=== PATIENT | female | born 1965 | race Caucasian/White ===

== ENCOUNTER → 2017-06-21 | Outpatient (CLI) | payer BC ==
--- NOTE | 2017-06-24 10:21 | Diagnostic Imaging Report ---
INDICATION: Routine screening. COMPARISON: 06/25/2012 and 07/04/2011. TECHNIQUE: Screening digital mammography was performed bilaterally with a Computer Aided Detection (CAD) system. FINDINGS: Both breasts remain heterogeneously dense, limiting the sensitivity of mammography. There are numerous microcalcifications noted in both breasts; however, the calcifications appear to be very similar to the prior exam when allowing for slight differences in technique. No suspicious mass is identified. The axillae are unremarkable. IMPRESSION: No mammographic features suspicious for malignancy are identified. ACR BI-RADS Category 2: Benign findings. Result letter will be mailed to the patient. Note: At least 10% of breast cancer is not imaged by mammography. Dictated by: Dictated on workstation # [id number]
== END ==
LOC: RAD 14:50
PROVIDERS: ATTEND Obstetrics & Gynecology
DX: Z12.31 Encounter for screening mammogram for malignant neoplasm of breast (principal)
CPT/HCPCS: 77067

== ENCOUNTER 2018-08-20 05:54 | Outpatient (CLI) | payer BC ==
[~2018-08-20] VITALS: Ht 172.7 cm; Wt 62.6 kg
== END 2018-08-20 10:36 | disposition home or self-care (01) ==
LOC: PREOP 05:54
PROVIDERS: ATTEND Surgery
DX: Z01.818 Encounter for other preprocedural examination (principal)

== ENCOUNTER 2018-08-27 09:17 | Day surgery (SDC) | payer BC ==
[~2018-08-27] VITALS: Ht 172.7 cm; Wt 62.6 kg
[2018-08-27] MEDS ORDERED: NS IV 500 ML 500 ML ONE (09:18)
[2018-08-27] MEDS ORDERED: NS IV 500 ML 500 ML IV PRN (09:19)
[2018-08-27] MEDS ORDERED: MIDAZOLAM 2 MG/2 ML (VERSED) VIAL IVP ONE (09:30)
[2018-08-27] MEDS ORDERED: fentaNYL INJECTION 100 MCG/2 ML AMP IVP ONE (09:30)
[2018-08-27] MEDS ORDERED: LIDOCAINE JELLY 2% 6 ML SYRINGE MM PRN (09:30)
[2018-08-27 09:40] VITALS: BP 109/66
[2018-08-27] MEDS ORDERED: LIDOCAINE JELLY 2% 6 ML SYRINGE ONE (09:51)
[2018-08-27] MEDS ORDERED: fentaNYL INJECTION 100 MCG/2 ML AMP ONE ×2 (09:52→10:22)
[2018-08-27] MEDS ORDERED: MIDAZOLAM 2 MG/2 ML (VERSED) VIAL ONE ×4 (09:52)
--- NOTE | 2018-08-27 10:07 | Conscious Sedation/ASA ---
Conscious Sedation Pre-Proced Time 10:00 ASA Score 2 For ASA 3 and 4: Consider anesthesia and medical clearance. Also, for patients with a history of failed moderate sedation consider anesthesia. Airway Lungs Heart ASA score ASA 1: a normal healthy patient ASA 2: a patient with a mild systemic disease (mid diabetes, controlled hypertension, obesity ASA 3: a patient with a severe systemic disease that limits activity (angina, COPD, prior Myocardial infarction) ASA 4: a patient with an incapacitating disease that is a constant threat to life (CHF, renal failure) ASA 5: a moribund patient not expected to survive 24 hrs. (ruptured aneurysm) ASA 6: a declared brain- patient whose organs are being harvested. For emergent operations, add the letter E after the classification Mallampati Classification Grade 2 Sedation Plan Analgesia, Amnesia, Plan communicated to team members, Discussed options with patient/fam, Discussed risks with patient/fam The patient is an appropriate candidate to undergo the planned procedure, sedation, and anesthesia. The patient immediately re-assessed prior to indication. MALCOLM GARSIA MD Aug 27, 2018 10:07
--- NOTE | 2018-08-27 10:08 | Progress Note-Pre Operative ---
Pre-Operative Progress Note H&P Reviewed The H&P was reviewed, patient examined and no changes noted. Date Seen by Provider: Aug 27, 2018 Time Seen by Provider: 10:00 Date H&P Reviewed: Aug 27, 2018 Time H&P Reviewed: 10:00 Pre-Operative Diagnosis: screening colonoscopy MALCOLM GARSIA MD Aug 27, 2018 10:08
--- NOTE | 2018-08-27 10:10 | Discharge Inst-Surgical ---
D/C Lap Instructions-SUN Follow Up Activity as tolerated High Fiber Diet 25g or more per day Avoid Alcohol, Caffeine, Spicy [place] and Acid foods. Drink 64 fluid oz or more of fluids per day. Symptoms to Report: Fever over 101 degree F, Nausea/Vomiting If any problems/questions: Contact your physician or go to Emergency Room MALCOLM GARSIA MD Aug 27, 2018 10:10
[2018-08-27] MEDS ORDERED: ACETAMINOPHEN 325 MG TABLET PO PRN (10:15)
[2018-08-27] MEDS ORDERED: morphine INJ 10 MG/ML 1ML (SYR OR VIAL) IVP PRN ×2 (10:15)
[2018-08-27] MEDS ORDERED: ONDANSETRON 4 MG/2 ML (SDV) Z0FRAN IVP PRN (10:15)
[2018-08-27] MEDS ORDERED: HYDROcodone/APAP 5 MG/325 MG (LORTAB) TAB PO PRN (10:15)
--- OUTSIDE RECORDS SUMMARY | 2018-08-27 10:43 | XMS REPORT | Continuity of Care Document ---
Author Organization Unknown Address Unknown Allergies Active Description Code Type Severity Reaction Onset Reported/Identified Relationship to Patient Clinical Status Yes No Known Drug Allergies [id number] Drug Allergy Unknown N/A 08/20/2018 Medications There is no data. Problems Date Dx Coded Attending Type Code Diagnosis Diagnosed By 03/05/2014 Ot 789.01 03/05/2014 Ot 611.89 03/05/2014 Ot V67.9 03/05/2014 Ot 625.8 03/05/2014 Ot 789.04 03/05/2014 Ot V16.41 03/05/2014 Ot 620.2 03/05/2014 Ot 625.8 03/05/2014 LAURY GARCIA Ot 620.2 03/05/2014 SHELIA HERNDON MD Ot 620.2 03/05/2014 SHELIA HERNDON MD Ot V16.41 06/10/2017 Ot 625.8 FEM GENITAL SYMPTOMS NEC 06/10/2017 LAURY GARCIA Ot 620.2 OVARIAN CYST NEC/NOS 06/10/2017 SHELIA HERNDON MD Ot 620.2 OVARIAN CYST NEC/NOS 06/10/2017 SHELIA HERNDON MD Ot V16.41 FAM HX-MAL NEOP-OVARY 06/22/2017 Ot 625.8 FEM GENITAL SYMPTOMS NEC 06/22/2017 LAURY GARCIA Ot 620.2 OVARIAN CYST NEC/NOS 06/22/2017 SHELIA HERNDON MD Ot 620.2 OVARIAN CYST NEC/NOS 06/22/2017 SEHLIA HERNDON MD Ot V16.41 FAM HX-MAL NEOP-OVARY 06/24/2017 GUS JOE MD Ot Z12.31 ENCNTR SCREEN MAMMOGRAM FOR MALIGNANT NE 07/04/2017 GUS JOE MD Ot Z12.31 ENCNTR SCREEN MAMMOGRAM FOR MALIGNANT NE 08/20/2018 MALCOLM GARSIA MD Ot Z01.818 ENCOUNTER FOR OTHER PREPROCEDURAL EXAMIN Procedures There is no data. Results There is no data. Encounters ACCT No. Visit Date/Time Discharge Status Pt. Type Provider Facility Loc./Unit Complaint [id number] 08/20/2018 05:54:00 08/20/2018 10:36:00 DIS Outpatient MALCOLM GARSIA MD [facility] PREOP COLONOSCOPY [id number] 06/21/2017 14:50:00 06/21/2017 23:59:59 CLS Outpatient TATYANA GRIJALVA, GUS [facility] RAD SCREENING [id number] 10/30/2013 15:32:00 10/30/2013 23:59:59 CLS Outpatient SHELIA HERNDON MD [facility] RAD FAMILY HX OF OVARIAN CA [id number] 09/05/2012 15:33:00 09/05/2012 23:59:59 CLS Outpatient LAURY GARCIA [facility] RAD LT OVARIAN CYST [id number] 08/27/2018 09:30:00 PEN Preadmit MALCOLM GARSIA MD [facility] ENDO SCREENING [id number] 08/27/2018 07:45:00 PEN Preadmit OTHER, UNLISTED [facility] RAD SCREENING [id number] 07/09/2012 10:07:00 Document Registration [id number] 07/19/2011 10:01:00 Document Registration [id number] 06/13/2011 14:58:00 Document Registration [id number] 12/28/2009 07:46:00 Document Registration [id number] 09/15/2009 07:10:00 Document Registration
--- NOTE | 2018-08-27 10:45 | Progress Note-Post Operative ---
Post-Operative Progess Note Surgeon (s)/Dental Prosthetist (s) Surgeon MALCOLM GARSIA MD Dental Prosthetist: none Pre-Operative Diagnosis screening colonoscopy Post-Operative Diagnosis normal colon and rectum Procedure & Operative Findings Date of Procedure 08/27/18 Procedure Performed/Findings colonoscopy Anesthesia Type cs Estimated Blood Loss Estimated blood loss (mL): minimal Specimens/Packing Specimens Removed none MALCOLM GARSIA MD Aug 27, 2018 10:44
[2018-08-27 11:00] VITALS: BP 104/63
[2018-08-27 11:30] VITALS: BP 104/64
[2018-08-27 11:35] VITALS: BP 104/64
--- NOTE | 2018-08-27 15:06 | OPERATIVE REPORT ---
DATE OF SERVICE: 08/27/2018 ATTENDING PRIMARY PHYSICIAN: Dr. Graff. PREOPERATIVE DIAGNOSIS: Screening colonoscopy. POSTOPERATIVE DIAGNOSIS: Normal colon and rectum. PROCEDURE: Colonoscopy. SURGEON: Malcolm Garsia MD ANESTHESIA: Conscious sedation. ESTIMATED BLOOD LOSS: Minimal. FINDINGS: Normal colon and rectum. No polyps nor any neoplasms. DISPOSITION: The patient tolerated the procedure well. INDICATIONS: The patient is a 52-year-old female in need of a screening colonoscopy. She has not had a colonoscopy up to this point in her life. She states that she is otherwise doing well. Does not report any major issues with diarrhea, no constipation as well as no red blood per rectum nor any dark tarry stools. She also does not report any family history of colon cancer. DESCRIPTION OF PROCEDURE: The patient was brought to the endoscopy suite, laid in the left lateral decubitus position. After adequate IV pain and sedative medications and conscious sedation anesthesia, a digital rectal examination was performed. No significant hemorrhoids were identified. Normal sphincter tone was felt and there were no palpable masses. The endoscope was then intubated to the anus and rectum gently insufflated. The endoscope was then advanced through the valves of Correa in the rectum with no polyps or any neoplasms identified. The endoscope was then advanced to the sigmoid colon, where no diverticulosis was identified. The endoscope was then advanced through the remainder of the descending, transverse and ascending colon to the cecum. These segments were normal. There were no polyps or any neoplasms identified. The endoscope was then slowly withdrawn while taking a second look and suctioning of residual air with no additional findings. The patient tolerated the procedure well. We will recommend continue conservative management with a high fiber diet with at least 25 grams of fiber per day as well as significant amounts of water to promote soft stools on a daily basis. She does not need another colonoscopy for another 10 years. Job ID: [id number] DocumentID: [id number] Dictated Date: 08/27/2018 10:44:19 Mothers Helper Date: 08/27/2018 15:06:13 Dictated By: MALCOLM GARSIA MD
== END 2018-08-27 11:35 | disposition home or self-care (01) ==
LOC: ENDO 09:17
PROVIDERS: ATTEND Surgery
DX: Z12.11 Encounter for screening for malignant neoplasm of colon (principal); Z80.41 Family history of malignant neoplasm of ovary
CPT/HCPCS: 84703

== ENCOUNTER → 2018-08-27 | Outpatient (CLI) | payer BC ==
--- NOTE | 2018-08-27 12:42 | Diagnostic Imaging Report ---
INDICATION: Bilateral screening with 3-D tomosynthesis and cad. EXAMINATION: Digital mammogram. This study was compared to prior exams of 06/21/17 and 06/25/12. At this time there are no current complaints. The fibroglandular tissue in both breasts is dense. This does limit the sensitivity of this exam. As noted on the prior exam there are number of calcifications scattered throughout both breasts. However there is now a group of microcalcifications in the retroareolar region of the left breast which do seem more numerous than on the prior exam. I would recommend that a compression/magnification view of these microcalcifications be obtained in the CC and ML projection so that they can be better characterized. There is no primary or secondary sign of malignancy noted otherwise. IMPRESSION: Additional mammographic views of the left breast would be recommended for further study. ACR BI-RADS Category 0: Incomplete. (Needs additional imaging evaluation). Result letter will be mailed to the patient. Note: At least 10% of breast cancer is not imaged by mammography. Dictated by: Dictated on workstation # [id number]
== END ==
LOC: RAD 07:46
PROVIDERS: ATTEND Obstetrics & Gynecology
DX: Z12.31 Encounter for screening mammogram for malignant neoplasm of breast (principal)
CPT/HCPCS: 77067

== ENCOUNTER → 2018-09-10 | Outpatient (CLI) | payer BC ==
--- NOTE | 2018-09-10 14:21 | Diagnostic Imaging Report ---
INDICATION: Left breast calcifications. The patient presents for additional views. COMPARISON: Correlation is made with the recent screening study from 08/27/2018. TECHNIQUE: Unilateral left 2D and 3D diagnostic mammography was performed including magnification CC and ML views as well as a conventional 90 lateral view. FINDINGS: Calcifications in the retroareolar and slightly outer left breast do appear to be slightly more numerous when compared with the prior exam. The calcifications are primarily round and do not exhibit pleomorphism. No soft tissue mass is seen. IMPRESSION: Increasing cluster of microcalcifications in the retroareolar and slightly outer left breast. While these have a fairly benign shape, the increase in number is concerning and tissue sampling is recommended. These would be amenable to stereotactic biopsy. ACR BI-RADS Category 4: Suspicious abnormality. Result letter will be mailed to the patient. Note: At least 10% of breast cancer is not imaged by mammography. Dictated by: Dictated on workstation # [id number]
== END ==
LOC: RAD 13:11
PROVIDERS: ATTEND Obstetrics & Gynecology
DX: R92.0 Mammographic microcalcification found on diagnostic imaging of breast (principal)

== ENCOUNTER → 2018-09-26 | Outpatient (CLI) | payer BC ==
[~2018-09-26] VITALS: Ht 172.7 cm; Wt 62.6 kg
[~2018-09-26] MED LIST: LIDOCAINE 1% INJ 20 ML 20 ML VIAL INJ ONE; LIDOCAINE 1% INJ 20 ML 20 ML VIAL ONE
--- NOTE | 2018-09-26 16:07 | Diagnostic Imaging Report ---
INDICATION: Left breast calcifications. PROCEDURE: The patient presents for stereotactic biopsy. DESCRIPTION OF PROCEDURE: The patient brought to the stereotactic suite and placed in a chair in a sitting upright position. The left breast was positioned lateral medial. Stereotactic imaging was performed. Calcifications in the retroareolar left breast was stereotactically targeted. The lateral left breast was prepped and draped in the usual sterile fashion. A small amount of 1% lidocaine was utilized for local anesthesia. An 8 gauge needle was advanced from a lateral medial approach, placed per stereotactic coordinates. A total of 4 core biopsies were obtained utilizing a vacuum-assisted device. Specimen radiograph was viewed on a dedicated workstation. There are multiple calcifications within the specimens, in particular the specimen labeled numbers 2, 3 and 4. Marker clip was then deployed. Needle was removed and hemostasis was obtained. The patient tolerated the procedure well and was sent for postprocedure mammogram in satisfactory condition. Postprocedure mammogram demonstrates stereotactic clips in the retroareolar left breast. IMPRESSION: Successful stereotactic biopsy of left breast calcifications. Pathology results are currently pending. Dictated by: Dictated on workstation # [id number]
== END ==
LOC: RAD 08:29
DX: R92.1 Mammographic calcification found on diagnostic imaging of breast (principal); R92.8 Other abnormal and inconclusive findings on diagnostic imaging of breast
CPT/HCPCS: 19081; 88305

== ENCOUNTER → 2019-03-19 | Outpatient (CLI) | payer BC ==
--- NOTE | 2019-03-19 17:02 | Diagnostic Imaging Report ---
PROCEDURE: US Non-ob pelvis comp/trans. TECHNIQUE: Multiple realtime grayscale images were obtained of the pelvis in various projections endovaginally. Transabdominal imaging was also performed. INDICATION: Dysfunctional uterine bleeding. COMPARISON: 10/30/2013. FINDINGS: Transabdominal: The uterus and adnexa have a unremarkable transabdominal appearance. Transvaginal images were obtained for additional characterization. Transvaginal: The uterus is anteverted and measures 9.5 x 4.0 x 5.1 cm. A focal area of mixed echogenicity is seen in the right uterine fundus measuring 2.1 x 2.1 x 2.0 cm. The endometrial stripe measures 0.4 cm and has a normal appearance. The right ovary is well visualized measuring 2.6 x 1.3 x 1.7 cm and demonstrating normal color Doppler flow. The left ovary is well-visualized measuring 2.2 x 3.2 x 1.9 cm with normal color Doppler flow. Small cysts/follicles are seen in the ovaries bilaterally. No adnexal masses. No free fluid is seen in the pelvis. IMPRESSION: 1. Likely uterine fibroid in the right aspect of the fundus. The endometrial stripe is unremarkable. 2. Unremarkable sonographic appearance of the ovaries with small cysts/follicles bilaterally. No free fluid in the adnexa. Dictated by: Dictated on workstation # [id number]
== END ==
LOC: RAD 15:29
PROVIDERS: ATTEND Obstetrics & Gynecology
DX: N93.8 Other specified abnormal uterine and vaginal bleeding (principal)
CPT/HCPCS: 76830; 76856

== ENCOUNTER → 2019-03-27 | Outpatient (CLI) | payer BC ==
--- NOTE | 2019-03-27 17:13 | Diagnostic Imaging Report ---
INDICATION: Six-month follow-up of left breast calcifications. Patient is status post stereotactic biopsy with benign result. Correlation is made with prior mammograms from 09/26/2018, 08/27/2018, as well as 06/21/2017. Unilateral left 2-D and 3-D diagnostic mammography was performed. The current study was also evaluated with a Computer Aided Detection (CAD) system. 3-D tomosynthesis was also performed and reviewed. FINDINGS: Left breast remains heterogeneously dense, limiting the sensitivity of mammography. Post biopsy changes in retroareolar left breast are noted. There is a marker clip in place. The cluster of microcalcifications previously noted has been stereotactically removed. Additional benign calcifications throughout the left breast are noted. No discrete mass is detected. Left axilla is unremarkable. IMPRESSION: Stable post biopsy changes. No mammographic features suspicious for malignancy are identified. ACR BI-RADS Category 2: Benign findings. Result letter will be mailed to the patient. Note: At least 10% of breast cancer is not imaged by mammography. Dictated by: Dictated on workstation # [id number]
== END ==
LOC: RAD 13:51
PROVIDERS: ATTEND Obstetrics & Gynecology
DX: R92.1 Mammographic calcification found on diagnostic imaging of breast (principal); Z98.890 Other specified postprocedural states

== ENCOUNTER → 2019-08-20 | Outpatient (CLI) | payer BC ==
--- NOTE | 2019-08-21 09:50 | Diagnostic Imaging Report ---
INDICATION: 2-D and 3-D digital screening with CAD. COMPARISON: 03/2019, 09/2018, 08/2018 and 06/2017 FINDINGS: Heterogeneously dense parenchymal pattern is redemonstrated limiting mammographic sensitivity. New asymmetric density upper outer quadrant of the left breast at its mid depth is present. Tomographic views showed some localized density. It is not clear if this is a true mass or a superimposition. Spot compression views in the CC and MLO views recommended as well as a 90 degree lateral medial. Should the density fail to confidently resolve, diagnostic views, targeted ultrasound may then be appropriate. A few scattered benign type calcifications bilaterally are unchanged. The right mammogram is stable. IMPRESSION: New left breast asymmetric density, indeterminate. Diagnostic views and possible ultrasound recommended as discussed. BI-RADS Category 0 ACR BI-RADS Category 0: Incomplete. (Needs additional imaging evaluation). Result letter will be mailed to the patient. Note: At least 10% of breast cancer is not imaged by mammography. Dictated by: Dictated on workstation # [id number]
== END ==
LOC: RAD 15:13
DX: Z12.31 Encounter for screening mammogram for malignant neoplasm of breast (principal); R92.8 Other abnormal and inconclusive findings on diagnostic imaging of breast
CPT/HCPCS: 77063; 77067

== ENCOUNTER → 2019-09-10 | Outpatient (CLI) | payer BC ==
--- NOTE | 2019-09-10 10:51 | Diagnostic Imaging Report ---
EXAM: Ultrasound left breast, limited. INDICATION: Abnormal mammogram FINDINGS: The screening mammogram performed on 08/20/2019 noted an asymmetric density in the upper-outer quadrant of the left breast. This finding was difficult to evaluate on the diagnostic mammogram performed in conjunction with this study. However on this exam, there does appear to be in fairly well circumscribed 1.4 x 0.8 x 1.8 cm avascular hypoechoic with through transmission in the 2 to 3 o'clock position of the left breast approximately 3 cm from the nipple. This has the appearance of a simple cyst. The diagnostic mammogram also noted 2 other nodular densities deep in the midportion of the left breast. On this exam there are 2 small similar-appearing hypoechoic areas in this region. The larger of the 2 measures 0.8 x 0.4 x 0.5 cm. The other measures only a few millimeters in size. These may also represent cysts. I do suspect that there are related to the densities seen on the mammogram as there are no other solid or cystic masses evident. Even so, it may prove worthwhile to have a short-term (6 month) follow-up mammogram and ultrasound exam of the left breast for continued evaluation. IMPRESSION: 1. There appear to be a few benign-appearing cysts in the left breast. There is no solid mass to suggest malignancy but a six-month follow-up exam would be recommended for continued evaluation. ACR category 3. ACR BI-RADS Category 3: Probably benign findings. Result letter will be mailed to the patient. Note: At least 10% of breast cancer is not imaged by mammography. Dictated by: Dictated on workstation # [id number]
--- NOTE | 2019-09-10 11:48 | Diagnostic Imaging Report ---
EXAM: Diagnostic left mammogram The screening mammogram performed on 08/20/2019 noted an asymmetric density in the upper outer quadrant of the left breast. The compression views of this area show no definite abnormality. However, this region is difficult to assess due to the underlying fibroglandular tissue. I would recommend that ultrasound be performed for further study. Also, there are 2 nodular densities in the midportion of the left breast which were not well-visualized on the screening mammogram. These are best seen on the true lateral view. The smaller of these 2 nodular densities is fairly well-defined while the margin of the larger nodule is somewhat indistinct. These nodular densities were not clearly evident on the screening mammogram. I would recommend that these areas be evaluated by ultrasound, as well. IMPRESSION: 1. Ultrasound would be recommended for further evaluation of the left breast. ACR category 0 ACR BI-RADS Category 0: Incomplete. (Needs additional imaging evaluation). Result letter will be mailed to the patient. Note: At least 10% of breast cancer is not imaged by mammography. Dictated by: Dictated on workstation # [id number]
== END ==
LOC: RAD 09:07
PROVIDERS: ATTEND Obstetrics & Gynecology
DX: R92.8 Other abnormal and inconclusive findings on diagnostic imaging of breast (principal)
CPT/HCPCS: 76642; 77065; G0279

== ENCOUNTER → 2020-01-14 | Outpatient (CLI) | payer BC ==
--- NOTE | 2020-01-14 16:31 | Diagnostic Imaging Report ---
PROCEDURE: US Non-ob pelvis comp/trans. TECHNIQUE: Multiple realtime grayscale images were obtained of the pelvis in various projections endovaginally. Transabdominal imaging was also performed. INDICATION: Irregular menses. COMPARISON: Comparison is made to study of 03/19/2019. FINDINGS: The uterus is retroverted measuring 9.5 x 5.1 x 5.4 cm with heterogeneous myometrial echogenicity which could be due to diffuse fibroid change. A discrete fibroid mass is not identified. Endometrium is prominent measuring 1.2 cm in thickness. Previous endometrial measurement was 0.4 cm in thickness. There is blood flow to the ovaries bilaterally. Ovaries have a normal appearance with probable 1.5 cm cyst in the left ovary containing small amount of internal debris. No pelvic free fluid is identified. IMPRESSION: Prominent endometrial thickness reaching 1.2 cm could be related to hormonal influence and clinical correlation is recommended. This could be followed with additional ultrasonography after passage of several additional menstrual cycles to document resolution. Left ovarian cyst could also be reassessed at that time. Dictated by: Dictated on workstation # [id number]
== END ==
LOC: RAD 15:13
DX: N92.6 Irregular menstruation, unspecified (principal)
CPT/HCPCS: 76830; 76856

== ENCOUNTER → 2020-04-15 | Outpatient (CLI) | payer BC ==
--- NOTE | 2020-04-15 15:50 | Diagnostic Imaging Report ---
PROCEDURE: Pelvic comp/transvaginal sonogram. TECHNIQUE: Complete transabdominal and transvaginal pelvic ultrasound was performed. In addition, limited pelvic Doppler was performed. INDICATION: Thickened endometrium. COMPARISON: Comparison is made to prior ultrasound from 01/14/2020. FINDINGS: Uterus is anteverted measuring 9.1 x 4.5 cm. The endometrium is stable at 12 mm. No myometrial mass is detected. Right ovary was not visualized. Left ovary measures 3.4 x 2.5 x 3.5 cm. There is an 18 mm x 14 mm cyst in the left ovary. There is blood flow to left ovary. No adnexal mass or free fluid is seen. IMPRESSION: 1. Stable endometrial thickness when compared with exam from 01/14/2020. 2. 18 mm left ovarian cyst. Dictated by: Dictated on workstation # [id number]
== END ==
LOC: RAD 14:30
PROVIDERS: ATTEND Nurse Practitioner Family
DX: N83.202 Unspecified ovarian cyst, left side (principal); R93.89 Abnormal findings on diagnostic imaging of other specified body structures
CPT/HCPCS: 76830; 76856

== ENCOUNTER → 2020-09-07 | Outpatient (CLI) | payer BC ==
--- NOTE | 2020-09-07 13:43 | Diagnostic Imaging Report ---
INDICATION: Six-month followup left breast nodules. COMPARISON: 08/20/2019 and 08/27/2018. TECHNIQUE: 2D and 3D bilateral diagnostic mammography was performed with CAD. FINDINGS: Both breasts are heterogeneously dense, limiting the sensitivity of mammography. A biopsy marker clip in the retroareolar left breast is again noted. There are scattered benign calcifications in both breasts. No mass or malignant appearing microcalcifications are seen. The axillae are unremarkable. IMPRESSION: Stable bilateral mammograms. A followup left breast ultrasound is recommended and will be performed today. ACR BI-RADS Category 0: Incomplete. (Needs additional imaging evaluation). Result letter will be mailed to the patient. Note: At least 10% of breast cancer is not imaged by mammography. Dictated by: Dictated on workstation # [id number]
--- NOTE | 2020-09-07 13:50 | Diagnostic Imaging Report ---
INDICATION: Followup left breast cysts. COMPARISON: Correlation is made with the prior left breast ultrasound from 09/10/2019. FINDINGS: Sonographic interrogation of the cysts at the 12 and 2:30 locations of the left breast was performed. The cyst at the 12 o'clock location appears smaller measuring 4 mm x 3 mm x 4 mm compared with 8 mm x 4 mm x 6 mm on the prior. The cyst at the 2:30 location 3 cm from the nipple measures 14 mm x 7 mm x 9 mm compared with 14 mm x 8 mm x 10 mm on the prior. No new mass is detected. IMPRESSION: Stable to slight decrease in size of the left breast cysts. The patient may return to routine annual screening mammography. ACR BI-RADS Category 2: Benign findings. Dictated by: Dictated on workstation # [id number]
== END ==
LOC: RAD 12:52
PROVIDERS: ATTEND Obstetrics & Gynecology
DX: N60.02 Solitary cyst of left breast (principal)
CPT/HCPCS: 76642; 77066; G0279; 77062

== ENCOUNTER → 2021-10-31 | Outpatient (CLI) | payer BC ==
--- NOTE | 2021-10-31 16:46 | Diagnostic Imaging Report ---
INDICATION: Routine screening. COMPARISON: 09/07/2020 and 08/20/2019. TECHNIQUE: 2D and 3D bilateral screening mammography was performed with CAD. FINDINGS: Both breasts are heterogeneously dense, limiting the sensitivity of mammography. Bilateral breast calcifications appear stable. There is a biopsy clip in the left breast. No mass or malignant-appearing microcalcifications are seen. The axillae are unremarkable. IMPRESSION: No mammographic features suspicious for malignancy are identified. ACR BI-RADS Category 2: Benign findings. Result letter will be mailed to the patient. Note: At least 10% of breast cancer is not imaged by mammography. Dictated by: Dictated on workstation # [id number]
== END ==
LOC: RAD 15:25
PROVIDERS: ATTEND Nurse Practitioner Family
DX: Z12.31 Encounter for screening mammogram for malignant neoplasm of breast (principal)
CPT/HCPCS: 77063; 77067

== ENCOUNTER → 2022-12-04 | Outpatient (CLI) | payer BC ==
--- NOTE | 2022-12-04 15:40 | Diagnostic Imaging Report ---
INDICATION: Routine screening. COMPARISON: 10/31/2021 and 09/07/2020. TECHNIQUE: 2D and 3D bilateral screening mammography was performed with CAD. FINDINGS: Both breasts are heterogeneously dense, limiting the sensitivity of mammography. Numerous microcalcifications are again noted throughout both breasts, limiting the sensitivity of mammography. The biopsy clip on the left is again noted. No mass is identified. The axillae are unremarkable. IMPRESSION: No mammographic features suspicious for malignancy are identified. ACR BI-RADS Category 2: Benign findings. Result letter will be mailed to the patient. Note: At least 10% of breast cancer is not imaged by mammography. Dictated by: Dictated on workstation # [id number]
== END ==
LOC: RAD 07:45
PROVIDERS: ATTEND Obstetrics & Gynecology
DX: Z01.419 Encounter for gynecological examination (general) (routine) without abnormal findings (principal); Z12.31 Encounter for screening mammogram for malignant neoplasm of breast
CPT/HCPCS: 77063; 77067